=== PATIENT | male | born 1985 | race Caucasian/White ===

== ENCOUNTER 2021-12-21 00:08 | Emergency (ER) | payer MEDICAID | END 2021-12-21 02:30 | disposition other institution (70) | LOC: JP.ED 00:08 | DX: F31.30 Bipolar disorder, current episode depressed, mild or moderate severity, unspecified (principal); F15.10 Other stimulant abuse, uncomplicated; F10.10 Alcohol abuse, uncomplicated; F12.10 Cannabis abuse, uncomplicated; F43.10 Post-traumatic stress disorder, unspecified; R44.0 Auditory hallucinations; M51.25 Other intervertebral disc displacement, thoracolumbar region; I10 Essential (primary) hypertension; Z88.2 Allergy status to sulfonamides | CPT/HCPCS: 36415; 80053; 80178; 80305-QW; 80307; 81001; 85025; 99284 ==